=== PATIENT | male | born 1960 | race Caucasian/White ===

== ENCOUNTER 2017-08-14 11:09 | Outpatient (RCR) | payer BC | END 2017-08-27 | LOC: PT 11:09 | PROVIDERS: ATTEND Specialist | DX: M75.02 Adhesive capsulitis of left shoulder (principal); M25.512 Pain in left shoulder; M25.612 Stiffness of left shoulder, not elsewhere classified; M75.82 Other shoulder lesions, left shoulder; M62.81 Muscle weakness (generalized) ==

== ENCOUNTER → 2017-08-19 | Outpatient (CLI) | payer BC ==
--- NOTE | 2017-08-19 14:28 | Diagnostic Imaging Report ---
TECHNIQUE: Magnetic resonance imaging of the LEFT SHOULDER was performed WITHOUT injected contrast. COMPARISON: None available. HISTORY: Pain FINDINGS: MUSCLES AND TENDONS: Rotator Cuff: Tendons: Supraspinatus: Tendinosis Infraspinatus: Intact Teres Minor: Intact Subscapularis: Intact Muscles: No focal muscle atrophy. Biceps Tendon: The long head of the biceps tendon is intratesticular tendinosis. GLENOHUMERAL JOINT: Glenoid Labrum: Superior labral tear with extension into the long head biceps tendon. Articular Cartilage: No focal defect. AC JOINT AND ACROMION: No hypertrophic degenerative changes of the acromioclavicular joint. Downsloping acromion with mild subacromial spurring. BONE: No focal or infiltrative bone marrow replacing abnormality. No acute fracture. SOFT TISSUES: Otherwise, the soft tissues appear unremarkable. IMPRESSION: Supraspinatus tendinosis without tear. Superior labral tear with extension into the long head biceps tendon. Signed by: Dr. Burke Mendez M.D. on 08/19/2017 2:24 PM
== END ==
LOC: MRI 10:56
PROVIDERS: ATTEND Specialist
DX: S46.092A Other injury of muscle(s) and tendon(s) of the rotator cuff of left shoulder, initial encounter (principal)

== ENCOUNTER → 2017-09-24 | Day surgery (SDC) | payer BC ==
[~2017-09-24] MED LIST: ACETAMINOPHEN 1000 MG/100 ML IV ONE; CEFAZOLIN SOD 2 GM/D5W 50ML 50 ML IV ONE; DEXAMETHASONE SOD PHOS INJ 4 MG/ML VIAL ONE; FENTANYL CITRATE/PF 100MCG/2 ML INJ ONE; GLYCOPYRROLATE INJ 1MG/ 5 ML SYR ONE; KETOROLAC TROMETHAMINE 30 MG/ML VIAL ONE; LIDOCAINE 2% /EPINEPHRINE 20 ML SDV INJ ONE; LIDOCAINE HCL 2% LOCAL INJ 5 ML SDV VIAL INJ ONE; MIDAZOLAM HCL 2 MG/2 ML VIAL ONE; NEOSTIGMINE 5 MG/5ML SYR ONE; ONDANSETRON HCL INJ 2 MG/ML VIAL ONE; PROPOFOL IV EMULSION 10 MG/ML 20 ML VIAL ONE; ROCURONIUM BROMIDE 10 MG/ML 5ML VIAL ONE; ROPIVACAINE 0.5% 5 MG/ML 30 ML SDV ONE; SEVOFLURANE INHAL SOLN 250 ML PEN BTL ONE
--- OUTSIDE RECORDS SUMMARY | 2017-09-24 06:29 | XMS REPORT | Continuity of Care Document ---
Author Author [facility] Organization [facility] Address [address] [address] Phone Unavailable Care Team Providers Care Ballet Master/Mistress Name Role Phone KATEY MONTILLA MD PCP Insurance Providers Guarantor Edwin Andrade Address [address] [place] [address] Email [email or web address] Ppo Policy Number [id number] Subscriber's Name Edwin Andrade Relationship 18 Self / Same As Patient Group Number [id number] Group Name [id number] Effective Date 16 Advance Directives Directive Response Recorded Date/Time Does the patient have an advance directive? No 08/11/17 4:11pm If yes, is advance directive on file with [facility]? No 08/11/17 4:11pm If not on file with [facility] will patient provide a copy? No 08/11/17 4:11pm Do you have a Directive to Physician? No 08/19/17 10:55am Do you have a Medical Power of Telephony Engineer? No 08/19/17 10:55am Do you have an out of hospital Do Not Resuscitate Order? No 08/19/17 10:55am Do you have any special needs we should be aware of? No 08/19/17 10:55am Do you have a support person here with you today? No 08/19/17 10:55am Did patient receive Notice of Privacy Practices? Yes 08/19/17 10:55am Did patient receive patient rights and responsibilities? Yes 08/19/17 10:55am Problems No problem information available. Medications No medication information available. Social History No social history information available. Hospital Discharge Instructions Current inpatient/outpatient. Discharge instructions are currently unavailable. Plan of Care Current inpatient/outpatient. The plan of care is currently unavailable. Functional Status No functional status information available. Allergies, Adverse Reactions, Alerts No allergy information available. Immunizations No immunization information available. Vital Signs No vital sign information available. Results No relevant diagnostic test, laboratory data and/or discharge summary information available. Procedures Procedure Status Date Provider(s) MRI joint upr extrem w/o dye Active 08/19/17 KATEY MONTILLA MD Encounters Encounter Location Arrival/Admit Date Discharge/Depart Date Attending Provider Registered Clinic [facility] 08/19/17 10:56am KATEY MONTILLA MD Discharged Recurring [facility] 08/14/17 11:09am 11:59pm KATEY MONTILLA MD
--- OUTSIDE RECORDS SUMMARY | 2017-09-24 06:29 | XMS REPORT ---
Author Author [facility] Address Unknown Phone Unavailable Care Team Providers Care Wire Communications Engineer Name Role Phone KATEY MONTILLA Unavailable Unavailable Problems This patient has no known problems. Allergies, Adverse Reactions, Alerts This patient has no known allergies or adverse reactions. Medications This patient has no known medications. Results Test Description Test Time Test Comments Text Results Atomic Results Result Comments MRI SHOULDER LEFT WO [place] [address] Patient Name: DARRIN CONDON MR #: [id number] : 1960 Age/Sex: 57/M Req #: [id number] [facility] Physician: Ordered by: KATEY MONTILLA MD Report #: [id number] Location: MRI Room/Bed: Procedure: [id number] MRI/MRI SHOULDER LEFT WO Exam Date: 08/19/17 Exam Time: 1130 REPORT STATUS: Signed TECHNIQUE: Magnetic resonance imaging of the LEFT SHOULDER was performed WITHOUT injected contrast. COMPARISON: None available. HISTORY: Pain FINDINGS: MUSCLES AND TENDONS: Rotator Cuff: Tendons: Supraspinatus: Tendinosis Infraspinatus: Intact Teres Minor: Intact Subscapularis: Intact Muscles: No focal muscle atrophy. Biceps Tendon: The long head of the biceps tendon is intratesticular tendinosis. GLENOHUMERAL JOINT: Glenoid Labrum: Superior labral tear with extension into the long head biceps tendon. Articular Cartilage: No focal defect. AC JOINT AND ACROMION: No hypertrophic degenerative changes of the acromioclavicular joint. Downsloping acromion with mild subacromial spurring. BONE: No focal or infiltrative bone marrow replacing abnormality. No acute fracture. SOFT TISSUES: Otherwise, the soft tissues appear unremarkable. IMPRESSION: Supraspinatus tendinosis without tear. Superior labral tear with extension into the long head biceps tendon. Signed by: Dr. Sandra Young M.D. on 08/19/2017 2:24 PM Dictated By: SANDRA YOUNG MD [id number] Transcribed By: GIULIA on 08/19/17 142 COPY TO: KATEY MONTILLA MD
--- NOTE | 2017-09-24 08:10 | Diagnostic Imaging Report ---
PROCEDURE: X-RAY CHEST, TWO VIEWS COMPARISON: None. INDICATIONS: PRE OPERATIVE CHEST X-RAY FOR SHOULDER SURGERY FINDINGS: LUNGS: No consolidations or edema. PLEURA: No effusions or pneumothorax. HEART \T\ MEDIASTINUM: The heart is within normal size-limits. BONES \T\ SOFT TISSUES: No acute findings. CONCLUSION: No acute thoracic abnormality. Tj Orlando D.O. Dictated by: Tj Orlando D.O. on 09/24/2017 at 8:10 Electronically approved by: Tj Orlando D.O. on 09/24/2017 at 8:10
--- NOTE | 2017-09-25 08:11 | Operative Report ---
DATE OF PROCEDURE: September 24, 2017 PREOPERATIVE DIAGNOSIS: Left shoulder labral tear. POSTOPERATIVE DIAGNOSES 1. Left shoulder labral tear. 2. Left shoulder biceps tendon tear. 3. Left shoulder synovitis. 4. Left shoulder arthrofibrosis. 5. Left shoulder bursal surface rotator cuff tear. PROCEDURES PERFORMED 1. Left shoulder examination under anesthesia. 2. Left shoulder arthroscopy. 3. Left shoulder manipulation under anesthesia. 4. Left shoulder debridement of synovitis. 5. Left shoulder debridement of labral tear. 6. Left shoulder arthroscopic biceps tenodesis. 7. Left shoulder arthroscopic takedown of adhesions. 8. Left shoulder arthroscopic subacromial decompression and acromioplasty. 9. Left shoulder debridement of a bursal surface rotator cuff tear. ELECTRICAL APPLIANCE MECHANIC: Bria Hayes ANESTHESIA: General endotracheal intubation anesthesia. IV FLUIDS: Per the anesthesia record. DESCRIPTION OF PROCEDURE: Mr. Andrade was taken to the operating room and placed in the supine position on the operating table. Following induction of general anesthesia as well as endotracheal intubation, the patient's chair was converted to a beach-chair type position. Examination of the left shoulder demonstrated no gross abnormalities. Passive range of motion the shoulder joint, however, was limited to 135 degrees. The shoulder was gently manipulated under anesthesia, and this resulted in mu-ism of full passive range of motion of the shoulder joint. Adhesions were felt to give way during the manipulation. The patient's shoulder and upper extremity were then prepped draped in the standard surgical fashion. Standard posterolateral and anterior portals were created without difficulty. The scope was placed in the shoulder joint atraumatically. Examination of glenohumeral articulation demonstrated diffuse synovitis in the shoulder joint. The glenohumeral articulation was found to have no abnormalities. There were no loose bodies in the shoulder joint. Examination of the articular insertion of the rotator cuff was found to be intact. A probe was placed in the anterior portal, and examination the labrum demonstrated a near full-thickness tearing of the labral attachment to the glenoid. The anterior labrum was found to be severely deficient. The tear extended somewhat into the biceps tendon at the level of the insertion site. The remainder of the biceps tendon was intact. A shaver was placed in the shoulder joint, and the synovitis was debrided. The labrum was also debrided at this time. The rotator interval was debrided, and sutures were shuttled through the rotator interval capturing the biceps tendon. The biceps tendon was then released from its insertion into the superior rim of the glenoid. The shoulder was deflated of its sterile normal saline. The scope was placed in the subacromial space, and significant bursal inflammation was encountered. A lateral portal was created through an outside-in technique. A shaver was placed in the shoulder joint, and the bursitis was excised. There were also multiple adhesions throughout the shoulder joint that were taken down at this time. The patient was found to have a partial thickness bursal surface rotator cuff tear with a markedly downward sloping acromion. A shaver was used to gently debride the rotator cuff tissue. The coracoacromial ligament was resected, and an aggressive acromioplasty was then performed. The patient's biceps tenodesis was completed at this time by tying the suture over the rotator interval. The shoulder was then deflated of its sterile normal saline. The portal sites were closed. The patient was provided a sterile dressing and a shoulder immobilizer. The patient was then awakened and taken to the postanesthesia care unit in stable condition. Bria Hayes acted as psychiatric nursing assistant for this case and was necessary for both prepping and draping the patient as well as positioning of the arm and passage of suture that allowed this case to be successful. Job#: [id number] KARLENE
== END | disposition home or self-care (01) ==
LOC: OR 06:26
PROVIDERS: ATTEND Specialist
DX: S43.432A Superior glenoid labrum lesion of left shoulder, initial encounter (principal); M75.112 Incomplete rotator cuff tear or rupture of left shoulder, not specified as traumatic; S46.212A Strain of muscle, fascia and tendon of other parts of biceps, left arm, initial encounter; M65.812 Other synovitis and tenosynovitis, left shoulder; M75.02 Adhesive capsulitis of left shoulder; M24.612 Ankylosis, left shoulder; J45.909 Unspecified asthma, uncomplicated; K21.9 Gastro-esophageal reflux disease without esophagitis; R00.1 Bradycardia, unspecified; F17.210 Nicotine dependence, cigarettes, uncomplicated; X58.XXXA Exposure to other specified factors, initial encounter; Z01.810 Encounter for preprocedural cardiovascular examination
CPT/HCPCS: 29826; 29828; 71046; 93005; J1100; J1885; J2001 ×2; J2250; J2405; J2795